=== PATIENT | male | born 1950 | race Caucasian/White ===

== ENCOUNTER 2020-12-19 09:22 | Day surgery (SDC) | payer MEDICARE ==
[2020-12-19] MEDS ORDERED: LACTATED RINGERS 1,000 ML IV ONE ×2 (10:01→11:11)
--- NOTE | 2020-12-19 10:44 | ANESTHESIA ---
Pre-Anesthesia VS, & Labs - Diagnosis Screening - Procedure Colonoscopy Vital Signs: Temp Pulse Resp BP Pulse Ox 36.5 C 72 12 137/77 H 98 12/19/20 10:02 12/19/20 10:02 12/19/20 10:02 12/19/20 10:02 12/19/20 10:02 Height: 6 ft Weight (kg): 94.9 kg Body Mass Index: 28.3 BMI Classification: Overweight - NPO >8 hours - Lab Results Lab results reviewed: Yes Home Medications and Allergies Home Medications: Ambulatory Orders [place] 450 mg PO DAILY 12/18/20 Garlic 400 mg PO DAILY 12/18/20 Glucosamine Sulfate 500 mg PO DAILY 12/18/20 Green Tea Browns Extract [Green Tea Extract] 150 mg PO DAILY 12/18/20 Multivitamin 1 each PO DAILY 12/18/20 [place]-3 Fatty Acids/Fish Oil [Fish Oil 1,000 mg Softgel] 1 each PO DAILY 12/18/20 Sildenafil Citrate [Viagra] 100 mg PO DAILY 12/18/20 Tamsulosin HCl [Flomax] 0.4 mg PO DAILY 12/19/20 [place] 450 mg PO DAILY 12/18/20 Garlic 400 mg PO DAILY 12/18/20 Glucosamine Sulfate 500 mg PO DAILY 12/18/20 Green Tea Browns Extract [Green Tea Extract] 150 mg PO DAILY 12/18/20 Multivitamin 1 each PO DAILY 12/18/20 [place]-3 Fatty Acids/Fish Oil [Fish Oil 1,000 mg Softgel] 1 each PO DAILY 12/18/20 Sildenafil Citrate [Viagra] 100 mg PO DAILY 12/18/20 Tamsulosin HCl [Flomax] 0.4 mg PO DAILY 12/19/20 Allergies/Adverse Reactions: Allergies Allergy/AdvReac Type Severity Reaction Status Date / Time No Known Drug Allergies Allergy Verified 12/18/20 14:55 Anes History & Medical History - Anesthetic History Anesthesia Complications: reports: No previous complications Family history of Anesthesia Complications: Denies Family history of Malignant Hyperthermia: Denies - Medical History Cardiovascular: reports: Hypertension, Other Gastrointestinal: reports: Colon polyps - Surgical History General: reports: Hiatal hernia repair, Other Gynecologic: reports: Other Orthopedic: reports: Other Exam General: Alert, Oriented x3, Cooperative Dental: WNL Mouth Openin Fingerbreadth Neck Mobility: Normal Mallampati classification: II Thyromental Distance: 4-6 cm Respiratory: Lungs clear Cardiovascular: Regular rate Plan Anesthesia Type: Total IV Consent for Procedure(s) Verified and Reviewed: Yes Code Status: Attempt Resuscitation ASA classification: 2-Mild systemic disease Is this case an emergency?: No
[2020-12-19] MEDS ORDERED: PROPOFOL 500 MG/50 ML 500 MG/50 ML VIAL ONE (10:53)
[2020-12-19] MEDS ORDERED: LIDOCAINE-MPF 2% 5 ML VIAL ONE (10:53)
[2020-12-19 11:34] VITALS: BP 120/81
--- NOTE | 2020-12-19 16:14 | ANESTHESIA POST OP EVALUATION ---
Anesthesia Post Eval - Post Anesthesia Eval Vitals: Last Vital Signs Temp 36.7 C 12/19/20 11:11 Pulse 88 12/19/20 11:33 Resp 21 12/19/20 11:33 BP 120/81 H 12/19/20 11:33 Pulse Ox 100 12/19/20 11:33 CV Function Including HR & BP: positive: Stable Pain Control: positive: Satisfactory Nausea & Vomiting: positive: Negative Mental Status: positive: Baseline Respiratory Status: Airway Patent Hydration Status: Satisfactory Anesthesia Complications: positive: None
== END 2020-12-19 09:23 | disposition home or self-care (01) ==
LOC: SDS 09:22
PROVIDERS: ATTEND Surgery
PROC: 0DBK8ZZ Excision of Ascending Colon, Via Natural or Artificial Opening Endoscopic (ICD-10-PCS; principal; 2020-12-19 10:30)
DX: Z12.11 Encounter for screening for malignant neoplasm of colon (principal); D12.2 Benign neoplasm of ascending colon; K64.8 Other hemorrhoids; K57.30 Diverticulosis of large intestine without perforation or abscess without bleeding; I10 Essential (primary) hypertension; I25.10 Atherosclerotic heart disease of native coronary artery without angina pectoris; E66.3 Overweight; Z68.28 Body mass index [BMI] 28.0-28.9, adult
CPT/HCPCS: 45380; J7120

== ENCOUNTER 2021-04-08 10:53 | Outpatient (CLI) | payer MEDICARE ==
--- NOTE | 2021-04-08 17:19 | XRAY Report ---
PROCEDURE: Lumbar Spine 2 View INDICATIONS: LOW BACK PAIN TECHNIQUE: 3 views of the lumbar spine were acquired. COMPARISON: None. FINDINGS: Bones: 5 [id number] vertebrae are present. There is mild L4-L5 anterolisthesis secondary to fa cet hypertrophy. Physiologic wedging of the T12, L1 and L2 vertebral bodies noted. No vertebral body compression fractures. No suspicious bony lesions. Moderate L1-L2, L2-L3, L4-L5 and L5-S1 degenerati ve disc disease. Mild L3-L4 degenerative disc disease. Severe L3-L4, L4-L5 and L5-S1 facet arthropath y. Postsurgical changes compatible prior right L5-S1 laminotomy. Soft tissues: Overlying bowel gas pattern is normal. No suspicious soft tissue calcifications. IMPRESSION: 1. Grade 1 L4-L5 degenerative spondylolisthesis. 2. Multilevel degenerative disc disease. 3. Multilevel facet arthropathy. 4. No fracture. No acute osseous lesion. If there is continued clinical concern for pathology, then M RI should be considered for further evaluation. Reviewed by: Jordana Agudelo MD, PhD on 04/08/2021 5:18 PM PDT Approved by: Jordana Agudelo MD, PhD on 04/08/2021 5:18 PM PDT Station ID: [id number]
== END 2021-04-08 10:54 | disposition home or self-care (01) ==
LOC: DI 10:53
PROVIDERS: ATTEND Internal Medicine
DX: M43.16 Spondylolisthesis, lumbar region (principal); M51.36 Other intervertebral disc degeneration, lumbar region; M51.37 Other intervertebral disc degeneration, lumbosacral region; M47.816 Spondylosis without myelopathy or radiculopathy, lumbar region; M47.817 Spondylosis without myelopathy or radiculopathy, lumbosacral region; R97.20 Elevated prostate specific antigen [PSA]
CPT/HCPCS: 36415; 84153